=== PATIENT | female | born 1965 | race Hispanic/Latino ===

== ENCOUNTER 2018-09-29 08:13 | Outpatient (CLI) | payer BC ==
--- NOTE | 2018-09-29 08:35 | ULT ---
ULTRASOUND ABDOMEN LIMITED: (RIGHT UPPER QUADRANT) DATE: 09/29/2018 HISTORY: Elevated LFTs FINDINGS: Gallbladder: Normal wall thickness. No gallstones or sludge identified. No pericholecystic fluid. Liver: Normal parenchymal echogenicity. Right kidney: No hydronephrosis. Pancreas: Visualized, with no gross sonographic abnormality identified (although ultrasound is relati vely insensitive for the detection of pancreatic pathology compared to CT and MRI.). Common duct caliber: 2 mm. IMPRESSION: Normal.
== END 2018-09-29 08:14 | disposition home or self-care (01) ==
LOC: BICULT 08:13
PROVIDERS: ATTEND Physician Assistant
DX: R74.8 Abnormal levels of other serum enzymes (principal)
CPT/HCPCS: 76705

== ENCOUNTER 2019-03-17 13:21 | Outpatient (CLI) | payer BC ==
--- NOTE | 2019-03-17 13:44 | ULT ---
ULTRASOUND RETROPERITONEUM COMPLETE: (RENAL) DATE: 03/17/2019 HISTORY: 53-year-old female with hematuria, unspecified type FINDINGS: The right kidney measures 12 x 5.5 x 3.5 cm. The left kidney measures 10.5 x 4 x 4.5 cm. Both kidneys have normal parenchymal echogenicity. There is no hydronephrosis. No moderate sized or large renal cystic or solid renal lesion is identified. Cursory images of the urinary bladder demonstrate no gross abnormality. IMPRESSION: Normal
== END 2019-03-17 13:22 | disposition home or self-care (01) ==
LOC: BICULT 13:21
PROVIDERS: ATTEND Physician Assistant
DX: R31.9 Hematuria, unspecified (principal)
CPT/HCPCS: 76770

== ENCOUNTER 2022-02-11 13:03 | Outpatient (CLI) | payer BC ==
[2022-02-11] MEDS ORDERED: Iopamidol 370 76% 100 ML VIAL ONE (14:18)
== END 2022-02-11 13:04 | disposition home or self-care (01) ==
LOC: CT 13:03
PROVIDERS: ATTEND Family Medicine
DX: R41.3 Other amnesia (principal)
CPT/HCPCS: 70470; Q9967

== ENCOUNTER 2023-04-21 09:24 | Outpatient (CLI) | payer BC | END 2023-04-21 09:25 | disposition home or self-care (01) | LOC: MRI 09:24 | PROVIDERS: ATTEND Psychiatry & Neurology Neurology | DX: M51.16 Intervertebral disc disorders with radiculopathy, lumbar region (principal); M47.26 Other spondylosis with radiculopathy, lumbar region; M48.061 Spinal stenosis, lumbar region without neurogenic claudication | CPT/HCPCS: 72148 ==

== ENCOUNTER 2024-02-01 00:21 | Emergency (ER) | payer BC ==
[2024-02-01 00:40] LABS: #Basophils 0.06 10x3/uL (0.0-0.2); %Basophils 0.7 % (0.0-1.0); %Eosinophils 2.1 % (0.0-10.0); %Lymphocytes 37.9 % (21.0-51.0); %Neutrophils 50.9 % (42.0-75.0); Hematocrit 40.1 % (36.0-47.0); Hemoglobin 13.4 g/dL (12.0-16.0); Mean Corpuscular HGB CONC 33.4 g/dL (32.0-36.0); Mean Corpuscular Hemoglobin 31.1 pg (27.0-31.0); Mean Platelet Volume 10.8 fL (7.4-10.4); Platelet Count 277 10x3/uL (130-400); RBC Distribution Width 12.9 % (11.5-14.5); Red Blood Cell (RBC) Count 4.31 mill/uL (4.20-5.40)
[2024-02-01 01:02] LABS: ALT (SGPT) 27 U/L (8-55); AST (SGOT) 21 U/L (5-34); Albumin 3.8 g/dL (3.5-5.0); Alkaline Phosphatase 95 U/L (40-110); Anion Gap 12 mmol/L (10-20); BUN (Urea Nitrogen) 21 mg/dL (9.8-20.1); Bilirubin, Total 0.5 mg/dL (0.2-1.2); Calc. Creatinine Clearance 0 mL/min (70-130); Calcium 8.9 mg/dL (7.8-10.44); Carbon Dioxide 22 mmol/L (22-29); Chloride 110 mmol/L (98-107); Estimated GFR 80; Glucose 100 mg/dL (70-105); Potassium 3.2 mmol/L (3.5-5.1); Protein, Total 6.8 g/dL (6.0-8.3); Sodium 141 mmol/L (136-145)
[2024-02-01] MEDS ORDERED: Ketorolac Tromethamine 30 MG (1 mL) VIAL ONE (01:18)
[2024-02-01] MEDS ORDERED: Acetaminophen 500 MG TAB ONE (01:18)
[2024-02-01] MEDS ORDERED: diphenhydrAMINE 50 MG/ML VIAL ONE (01:18)
[2024-02-01] MEDS ORDERED: Metoclopramide HCl 10 MG (2 mL) VIAL ONE (01:18)
[2024-02-01] MEDS ORDERED: Lorazepam 2 MG/ML VIAL ONE (01:20)
[2024-02-01] MEDS ORDERED: Ondansetron PF 4 MG/2 ML Vial ONE (01:29)
[2024-02-01 01:35] LABS: Troponin I Less than 0.010 ng/mL (< 0.028)
[2024-02-01] MEDS ORDERED: Potassium Chloride 20 MEQ TAB ONE (02:11)
[2024-02-01 02:51] LABS: Lipase 21 U/L (8-78); Magnesium 2.1 mg/dL (1.6-2.6)
== END 2024-02-01 02:45 | disposition home or self-care (01) ==
LOC: ERS 00:21
DX: I10 Essential (primary) hypertension (principal); R51.9 Headache, unspecified
CPT/HCPCS: 36415; 80053; 83690; 83735; 83880; 84484; 85025; 93005; 96365; 96375; J1200; J1885; J2060; J2405; J2765